=== PATIENT | female | born 1995 | race African-American/Black ===

== ENCOUNTER 2024-09-05 06:53 | Outpatient (REF) | payer OTHER, SELFPAY | END 2024-09-05 06:54 | disposition home or self-care (01) | LOC: HO.UMASIMG 06:53 | PROVIDERS: Visit Provider Nurse Practitioner Women's Health | DX: Z13.89 Encounter for screening for other disorder (principal) ==

== ENCOUNTER 2024-11-12 07:54 | Outpatient (REF) | payer OTHER, SELFPAY ==
--- NOTE | ~2024-11-12 | US_ITS ---
EXAMINATION: US PELVIS CLINICAL INFORMATION: Irregular menses COMPARISON: None available. TECHNIQUE: Ultrasound of the pelvis is performed using transabdominal transducer along with Doppler. FINDINGS: Uterus: The uterus is anteversion flexion position and measures 5 x 2 x 4 cm. The double wall endometrial thickness is 5 mm. The uterus is smooth in contour and has normal myometrial echogenicity. No visible fibroid. Adnexa: Both ovaries are visualized. There is normal color flow to the adnexa. There is no ovarian torsion. There is no pelvic ascites or fluid collection. Right ovary measures 3.2 x 2.2 x 2.7 cm. Volume: 10.3 cc Left ovary measures 3.1 x 1.5 x 2.3 cm. Volume: 5.6 cc US/US pelvic complete IMPRESSION: Normal transabdominal pelvic ultrasound. Electronically signed by: Rafael Padron MD 11/13/2024 01:34 PM EDT
== END 2024-11-12 07:55 | disposition home or self-care (01) ==
LOC: HO.UMASIMG 07:54
PROVIDERS: Visit Provider Nurse Practitioner Women's Health
DX: N92.6 Irregular menstruation, unspecified (principal)
CPT/HCPCS: 76830; 76856